=== PATIENT | male | born 1965 | race Caucasian/White ===

== ENCOUNTER 2017-01-16 16:29 | Emergency (ER) | payer SELFPAY ==
[~2017-01-16] VITALS: Ht 175.3 cm; Wt 120.0 kg
[~2017-01-16 16:29] MED LIST: CYCL1TAB29 PO; IBUP800T23 PO; MOBI15TA PO; NORC5TAB PO; ZOFR4TAB3 SL
[2017-01-16 16:31] VITALS: BP 123/80; PULSE 72; RESP 24; TEMP 97.3; O2SAT 93
[2017-01-16] MEDS ORDERED: SODIUM CHLOR 0.9% 1000 ML INJ 1,000 ML IV ONE (16:59)
[2017-01-16] MEDS ORDERED: SODIUM CHLORIDE 0.9% FLUSH 10 ML FLUSH IVF PRN (17:00)
--- NOTE | 2017-01-16 17:08 | PD ---
HPI Chief Complaint: Syncope/Near-Syncope Time Seen by Provider: 17:01 Travel History International Travel<30 days: No Contact w/Intl Traveler<30days: No Traveled to known affect area: No History of Present Illness HPI 51-year-old male presents to emergency Department with his , with reported syncopal or near syncopal episode yesterday afternoon. Patient's states that he was sitting after having a few drinks and grilling outdoors, which he notes he had a "funny look on his face" and was seemingly unresponsive to verbal stimuli. Patient one episode of projectile vomiting of clear fluids according to . Patient was then put in bed, and was reportedly having chills. Patient then slept from that time until approximately one hour prior to arrival here. Patient now feels tired but otherwise no complaints. He has no history of this in the past. Patient does have a history of chronic low back pain with a report of a "ruptured disc", and he did take some Lortab yesterday prior to this episode. Patient is allergic to eucalyptus. PFSH Past Medical History Diminished Hearing: Yes (HEARING TROUBLE) Pneumonia: Yes Past Surgical History Other Surgery: Yes (BACK SURGERY-15 YEARS AGO) Social History Alcohol Use: Yes Tobacco Use: Yes Substance Use: No Allergies-Medications (Allergen,Severity, Reaction): Coded Allergies: Eucalyptus Tree (Verified Allergy, Severe, Shortness of Breath, 08/06/16) Reported Meds & Prescriptions Reported Meds & Active Scripts Active Zofran Odt (Ondansetron Odt) 4 Mg Tab 4 Mg SL Q6HR PRN [place] (Hydrocodone-Acetaminophen) 5-325 mg Tab 1 Tab PO Q6H PRN Flexeril (Cyclobenzaprine HCl) 10 Mg Tab 10 Mg PO TID Mobic (Meloxicam) 15 Mg Tab 15 Mg PO DAILY Reported Ibuprofen 800 Mg Tab 800 Mg PO Q8HR PRN Review of Systems Except as stated in HPI: all other systems reviewed are Neg General / Constitutional: Positive: Chills, No: Fever Eyes: No: Visual changes HENT: No: Headaches Cardiovascular: No: Chest Pain or Discomfort Respiratory: No: Shortness of Breath Gastrointestinal: No: Abdominal Pain Genitourinary: No: Dysuria Musculoskeletal: No: Pain Skin: No Rash Neurologic: Positive: Syncope (see history present illness.), No: Weakness Psychiatric: No: Depression Endocrine: No: Polydipsia Hematologic/Lymphatic: No: Easy Bruising Physical Exam Narrative GENERAL: Patient appears in no acute distress. SKIN: Warm and dry. Normal color. Normal turgor. HEAD: Atraumatic. Normocephalic. EYES: Pupils equal and round. No scleral icterus. No injection or drainage. No nystagmus. ENT: No nasal bleeding or discharge. Mucous membranes pink and moist. Pharynx is clear. Airway is patent. NECK: Trachea midline. Supple nontender. CARDIOVASCULAR: Regular rate and rhythm. No murmurs gallops or rubs. RESPIRATORY: No accessory muscle use. Clear to auscultation. Breath sounds equal bilaterally. GASTROINTESTINAL: Abdomen soft, non-tender, nondistended. Hepatic and splenic margins not palpable. MUSCULOSKELETAL: Extremities without clubbing, cyanosis, or edema. No obvious deformities. Patient complains of low back pain on the left than the right with palpation. NEUROLOGICAL: Awake and alert. No obvious cranial nerve deficits. Motor grossly within normal limits. Five out of 5 muscle strength in the arms and legs. Normal speech. PSYCHIATRIC: Appropriate mood and affect; insight and judgment normal. Data Data Last Documented VS Vital Signs Date Time Temp Pulse Resp B/P Pulse Ox O2 Delivery O2 Flow Rate FiO2 01/16/17 17:25 82 129/74 85 118/81 81 125/88 Automatic Cuff 01/16/17 17:25 97 Room Air 01/16/17 16:31 97.3 24 Orders Electrocardiogram (01/16/17 16:59) Complete Blood Count With Diff (01/16/17 16:59) Comprehensive Metabolic Panel (01/16/17 16:59) Magnesium (Mg) (01/16/17 16:59) Ckmb (Isoenzyme) Profile (01/16/17 16:59) Troponin I (01/16/17 16:59) Act Partial Throm Time (Ptt) (01/16/17 16:59) Prothrombin Time / Inr (Pt) (01/16/17 16:59) Urinalysis - C+S If Indicated (01/16/17 16:59) Chest, Single Ap (01/16/17 16:59) Ct Brain W/O Iv Contrast(Rout) (01/16/17 16:59) Ecg Monitoring (01/16/17 16:59) Iv Access Insert/Monitor (01/16/17 16:59) Oximetry (01/16/17 16:59) Sodium Chloride 0.9% Flush (Ns Flush) (01/16/17 17:00) Sodium Chlor 0.9% 1000 Ml Inj (Ns 1000 M (01/16/17 16:59) Orthostatic Vital Signs (01/16/17 16:59) CKMB (01/16/17 17:10) CKMB% (01/16/17 17:10) Labs Laboratory Tests Test 01/16/17 01/16/17 17:10 18:30 White Blood Count 5.8 TH/MM3 Red Blood Count 4.84 MIL/MM3 Hemoglobin 15.3 GM/DL Hematocrit 45.7 % Mean Corpuscular Volume 94.4 FL Mean Corpuscular Hemoglobin 31.6 PG Mean Corpuscular Hemoglobin 33.5 % Concent Red Cell Distribution Width 13.9 % Platelet Count 187 TH/MM3 Mean Platelet Volume 9.4 FL Neutrophils (%) (Auto) 51.4 % Lymphocytes (%) (Auto) 28.9 % Monocytes (%) (Auto) 12.8 % Eosinophils (%) (Auto) 5.7 % Basophils (%) (Auto) 1.2 % Neutrophils # (Auto) 3.0 TH/MM3 Lymphocytes # (Auto) 1.7 TH/MM3 Monocytes # (Auto) 0.7 TH/MM3 Eosinophils # (Auto) 0.3 TH/MM3 Basophils # (Auto) 0.1 TH/MM3 CBC Comment DIFF FINAL Differential Comment Prothrombin Time 10.0 SEC Prothromb Time International 0.9 RATIO Ratio Activated Partial 28.2 SEC Thromboplast Time Sodium Level 142 MEQ/L Potassium Level 3.8 MEQ/L Chloride Level 105 MEQ/L Carbon Dioxide Level 28.5 MEQ/L Anion Gap 9 MEQ/L Blood Urea Nitrogen 11 MG/DL Creatinine 1.28 MG/DL Estimat Glomerular Filtration 59 ML/MIN Rate Random Glucose 182 MG/DL Calcium Level 8.3 MG/DL Magnesium Level 2.2 MG/DL Total Bilirubin 0.2 MG/DL Aspartate Amino Transf 34 U/L (AST/SGOT) Alanine Aminotransferase 60 U/L (ALT/SGPT) Alkaline Phosphatase 98 U/L Total Creatine Kinase 153 U/L Creatine Kinase MB 1.0 NG/ML Troponin I LESS THAN 0.02 NG/ML Total Protein 7.2 GM/DL Albumin 3.5 GM/DL Urine Color YELLOW Urine Turbidity CLEAR Urine pH 5.5 Urine Specific [place] 1.021 Urine Protein NEG mg/dL Urine Glucose (UA) NEG mg/dL Urine Ketones NEG mg/dL Urine Occult Blood NEG Urine Nitrite NEG Urine Bilirubin NEG Urine Urobilinogen LESS THAN 2.0 MG/DL Urine Leukocyte Esterase NEG Urine WBC 1 /hpf Microscopic Urinalysis Comment CULT NOT INDICATED MDM Medical Decision Making Medical Screen Exam Complete: Yes Emergency Medical Condition: Yes Differential Diagnosis Near syncope. Dehydration. Possible cardiac syndrome. Possible intracranial process. Electrolyte imbalance. Narrative Course Patient is medically stable at time of exam. Labs ordered including CBC, CMP, cardiac panel, urinalysis, PT PTT and INR, and EKG and chest x-ray. Orthostatics were ordered. CT of the head is ordered. IV access is obtained patient is given 1000 mL of normal saline bolus. EKG shows normal sinus rhythm with possible right ventricular conduction delay in V1 and V2. This is reviewed with Dr. Gomez. CBC shows no acute findings. CMP is remarkable for a random glucose of 182, and GFR 59. Calcium is 8.3. Troponin is less than 0.02. Coagulation studies are normal. Chest x-ray shows no acute findings per radiologist. CT scan is negative for acute process per radiologist. Patient is not orthostatic. Urinalysis is unremarkable. Patient was felt to have a near syncopal episode probably secondary to mild dehydration, EtOH, in addition to Lortab that he took for his back pain. All labs and CT scans and x-rays are within normal limits. Patient is to rest and push fluids and follow-up with his primary care physician as needed. Patient can always return to emergency department if worsening symptoms develop as needed. Diagnosis Primary Impression: Near syncope Referrals: [facility] call for appointment Primary Care Physician Patient Instructions: General Instructions, Near Syncope (ED) Additional Instructions: Patient was felt to have a near syncopal episode probably secondary to mild dehydration, EtOH, in addition to Lortab that he took for his back pain. All labs and CT scans and x-rays are within normal limits. Patient is to rest and push fluids and follow-up with his primary care physician as needed. Patient can always return to emergency department if worsening symptoms develop as needed. Med/Other Pt SpecificInfo: No Change to Meds Disposition: 01 DISCHARGE HOME Condition: Stable Oliver Mott January 16, 2017 17:08
[2017-01-16 17:16] LABS: BASOPHIL # 0.1 TH/MM3 (0-0.2); BASOPHIL % 1.2 % (0.0-2.0); EOSINOPHIL # 0.3 TH/MM3 (0-0.4); EOSINOPHIL % 5.7 % (0.0-4.0); HEMATOCRIT 45.7 % (39.0-51.0); HEMO FLAGS DIFF FINAL; LYMPH % 28.9 % (9.0-44.0); LYMPHOCYTE # 1.7 TH/MM3 (1.0-4.8); MEAN CELL VOLUME 94.4 FL (80.0-100.0); MEAN CORPUSCULAR HEMOGLOBIN 31.6 PG (27.0-34.0); MEAN CORPUSCULAR HGB CONC 33.5 % (32.0-36.0); MONO % 12.8 % (0.0-8.0); NEUT % 51.4 % (16.0-70.0); PLATELET COUNT 187 TH/MM3 (150-450); RED BLOOD COUNT 4.84 MIL/MM3 (4.50-5.90); RED CELL DISTRIBUTION WIDTH 13.9 % (11.6-17.2); WHITE BLOOD COUNT 5.8 TH/MM3 (4.0-11.0)
--- NOTE | 2017-01-16 17:21 | RADRPT ---
EXAM DATE/TIME: 01/16/2017 17:12 [facility] COMPARISON: No previous studies available for comparison. INDICATIONS : Syncope. MEDICAL HISTORY : None. SURGICAL HISTORY : None. ENCOUNTER: Initial ACUITY: 1 day PAIN SCORE: 0/10 LOCATION: Bilateral chest FINDINGS: A single view of the chest demonstrates the lungs to be symmetrically aerated without evidence of mas s, infiltrate or effusion. The cardiomediastinal contours are unremarkable. Osseous structures are intact. CONCLUSION: No acute disease. Zack Peterson MD on January 16, 2017 at 17:19 Board Certified Radiologist. This report was verified electronically.
[2017-01-16 17:25] VITALS: BP_SYST 118; BP_SYST 125; BP_SYST 129; BP_DIAS 74; BP_DIAS 81; BP_DIAS 88; O2SAT 97
[2017-01-16 17:29] LABS: APTT (PATIENT) 28.2 SEC (24.3-30.1); INTERNATIONAL NORMALIZED RATIO 0.9 RATIO
[2017-01-16 17:37] LABS: ANION GAP 9 MEQ/L (5-15); AST (GOT) 34 U/L (15-37); BICARBONATE 28.5 MEQ/L (21.0-32.0); BLOOD UREA NITROGEN 11 MG/DL (7-18); CHLORIDE 105 MEQ/L (98-107); GLOMERULAR FILTRATION RATE 59 ML/MIN (>89); MAGNESIUM 2.2 MG/DL (1.5-2.5); SODIUM (NA) 142 MEQ/L (136-145)
[2017-01-16 17:38] LABS: POTASSIUM 3.8 MEQ/L (3.5-5.1)
--- NOTE | 2017-01-16 17:38 | RADRPT ---
EXAM DATE/TIME: 01/16/2017 17:28 [facility] COMPARISON: No previous studies available for comparison. INDICATIONS : Syncopal episode. RADIATION DOSE: 35.64 CTDIvol (mGy) MEDICAL HISTORY : None SURGICAL HISTORY : None. ENCOUNTER: Initial ACUITY: 1 day PAIN SCALE: 0/10 LOCATION: cranial TECHNIQUE: Multiple contiguous axial images were obtained of the head. Using automated exposure control and adj ustment of the mA and/or kV according to patient size, radiation dose was kept as low as reasonably a chievable to obtain optimal diagnostic quality images. FINDINGS: CEREBRUM: The ventricles are normal for age. No evidence of midline shift, mass lesion, hemorrhage or acute in farction. No extra-axial fluid collections are seen. POSTERIOR FOSSA: The cerebellum and brainstem are intact. The 4th ventricle is midline. The cerebellopontine angle i s unremarkable. EXTRACRANIAL: The visualized portion of the orbits is intact. There is opacification of the right maxillary sinus. SKULL: The calvaria is intact. No evidence of skull fracture. CONCLUSION: No acute intracranial abnormality. Opacification of the right maxillary sinus. Zack Peterson MD on January 16, 2017 at 17:35 Board Certified Radiologist. This report was verified electronically.
[2017-01-16 17:54] LABS: ALKALINE PHOSPHATASE 98 U/L (45-117); ALT (GPT) 60 U/L (12-78); CREATINE KINASE 153 U/L (39-308); TOTAL BILIRUBIN ADULT 0.2 MG/DL (0.2-1.0)
--- NOTE | 2017-01-16 18:32 | PD ---
Data Data Last Documented VS Vital Signs Date Time Temp Pulse Resp B/P Pulse Ox O2 Delivery O2 Flow Rate FiO2 01/16/17 17:25 82 129/74 85 118/81 81 125/88 Automatic Cuff 01/16/17 17:25 97 Room Air 01/16/17 16:31 97.3 24 Orders Electrocardiogram (01/16/17 16:59) Complete Blood Count With Diff (01/16/17 16:59) Comprehensive Metabolic Panel (01/16/17 16:59) Magnesium (Mg) (01/16/17 16:59) Ckmb (Isoenzyme) Profile (01/16/17 16:59) Troponin I (01/16/17 16:59) Act Partial Throm Time (Ptt) (01/16/17 16:59) Prothrombin Time / Inr (Pt) (01/16/17 16:59) Urinalysis - C+S If Indicated (01/16/17 16:59) Chest, Single Ap (01/16/17 16:59) Ct Brain W/O Iv Contrast(Rout) (01/16/17 16:59) Ecg Monitoring (01/16/17 16:59) Iv Access Insert/Monitor (01/16/17 16:59) Oximetry (01/16/17 16:59) Sodium Chloride 0.9% Flush (Ns Flush) (01/16/17 17:00) Sodium Chlor 0.9% 1000 Ml Inj (Ns 1000 M (01/16/17 16:59) Orthostatic Vital Signs (01/16/17 16:59) CKMB (01/16/17 17:10) CKMB% (01/16/17 17:10) Labs Laboratory Tests Test 01/16/17 17:10 White Blood Count 5.8 TH/MM3 Red Blood Count 4.84 MIL/MM3 Hemoglobin 15.3 GM/DL Hematocrit 45.7 % Mean Corpuscular Volume 94.4 FL Mean Corpuscular Hemoglobin 31.6 PG Mean Corpuscular Hemoglobin 33.5 % Concent Red Cell Distribution Width 13.9 % Platelet Count 187 TH/MM3 Mean Platelet Volume 9.4 FL Neutrophils (%) (Auto) 51.4 % Lymphocytes (%) (Auto) 28.9 % Monocytes (%) (Auto) 12.8 % Eosinophils (%) (Auto) 5.7 % Basophils (%) (Auto) 1.2 % Neutrophils # (Auto) 3.0 TH/MM3 Lymphocytes # (Auto) 1.7 TH/MM3 Monocytes # (Auto) 0.7 TH/MM3 Eosinophils # (Auto) 0.3 TH/MM3 Basophils # (Auto) 0.1 TH/MM3 CBC Comment DIFF FINAL Differential Comment Prothrombin Time 10.0 SEC Prothromb Time International 0.9 RATIO Ratio Activated Partial 28.2 SEC Thromboplast Time Sodium Level 142 MEQ/L Potassium Level 3.8 MEQ/L Chloride Level 105 MEQ/L Carbon Dioxide Level 28.5 MEQ/L Anion Gap 9 MEQ/L Blood Urea Nitrogen 11 MG/DL Creatinine 1.28 MG/DL Estimat Glomerular Filtration 59 ML/MIN Rate Random Glucose 182 MG/DL Calcium Level 8.3 MG/DL Magnesium Level 2.2 MG/DL Total Bilirubin 0.2 MG/DL Aspartate Amino Transf 34 U/L (AST/SGOT) Alanine Aminotransferase 60 U/L (ALT/SGPT) Alkaline Phosphatase 98 U/L Total Creatine Kinase 153 U/L Creatine Kinase MB 1.0 NG/ML Troponin I LESS THAN 0.02 NG/ML Total Protein 7.2 GM/DL Albumin 3.5 GM/DL MDM Supervised Visit with HOA: Yes Narrative Course The history, exam, and medical decision-making in the associated mid-level provider note were completed with my assistance. I reviewed and agree with the findings presented. I attest that I had a [id number] encounter with the patient on the same day, and personally performed and documented my assessment and findings in the medical record. *My assessment and Findings: 51-year-old man, presents emergent arm for evaluation after unusual episode of syncope/unresponsiveness yesterday. He had a little bit of alcohol to drink, he says 2 beers, take a pain pill for his back, which he does once or twice a week, when yesterday evening he was seated his notices slumped over little bit. His eyes are open but he didn't appear to be responding, is talking was hanging out of his mouth. He didn't have an episode of vomiting. It took her a while to wake him up/get him to come through. He otherwise looked well. States at that point he was a little disoriented. She had to help him to bed. He then slept throughout the day until this afternoon. States he feels fine now but they're worried about the episode. He otherwise has been feeling generally well and healthy. No other recent illness or injury. No other complaints. Exam is benign. Initial labs are benign. We'll check CT, UA, likely discharge for outpatient follow-up. Etiology is unclear. Possibly related to medication use. Seizure she possible but less likely. Stroke or arrhythmia also seems unlikely. Diagnosis Primary Impression: Near syncope Referrals: Primary Care Physician Patient Instructions: General Instructions, Near Syncope (ED) Disposition: 01 DISCHARGE HOME Condition: Stable Clarence Gomez MD January 16, 2017 18:32
[2017-01-16 19:05] LABS: BLOOD, URINE NEG (NEG); COMMENT (UR) CULT NOT INDICATED; CULTURE IF INDICATED CULT NOT INDICATED; GLUCOSE,URINE NEG (NEG); KETONE, URINE NEG (NEG); NITRITE,URINE NEG (NEG); PH, URINE 5.5 (5.0-8.5); URINE COLOR YELLOW (YELLW/STRAW)
--- NOTE | 2017-01-17 08:21 | EKG ---
Date Performed: 01/16/2017 Time Performed: 17:18:47 PTAGE: 51 years EKG: Sinus rhythm POSSIBLE RIGHT VENTRICULAR CONDUCTION DELAY BORDERLINE ECG NO PREVIOUS TRACING DOCTOR: Spenser Walden Interpretating Date/Time 01/17/2017 08:20:39
== END 2017-01-16 19:20 | disposition home or self-care (01) ==
LOC: NEPC 16:29
DX: R55 Syncope and collapse (principal); R11.12 Projectile vomiting; G89.29 Other chronic pain; M54.5 Low back pain; R94.31 Abnormal electrocardiogram [ECG] [EKG]; Z72.0 Tobacco use
CPT/HCPCS: 70450; 71010; 80053; 81001; 82550; 82552; 83735; 84484; 85025; 85610; 85730; 93005; 96360; 96361; 99285; J7030

== ENCOUNTER 2017-11-23 11:05 | Emergency (ER) | payer SELFPAY ==
[~2017-11-23 11:05] MED LIST changes: +CYCL10TA PO; -CYCL1TAB29 PO; +IBUP1TAB7 PO; -IBUP800T23 PO
[2017-11-23 11:18] VITALS: BP 125/87; PULSE 96; RESP 16; TEMP 97.4; O2SAT 98
--- NOTE | 2017-11-23 13:57 | PD ---
HPI Chief Complaint: Back/ Neck Pain or Injury Time Seen by Provider: 13:57 Travel History International Travel<30 days: No Contact w/Intl Traveler<30days: No Traveled to known affect area: No History of Present Illness HPI 52-year-old male, with history of chronic low back pain 2 years, presents to emergency department with complaint of increasing low back pain for the past 2 weeks. History of "ruptured disks." Says chronic low back pain is from a work- related injury 2 years ago. Denies new or recent injury. Pain radiates down his left leg. Denies encopresis, incontinence, saddle anesthesias. Reports nausea without vomiting. Says he does sometimes vomit secondary to the intense pain. Denies IV drug use or cancer. Denies fevers. Denies change in urine or stool. Has had x-rays and MRIs in the past and saw a specialist in [facility] who told him he had nerve damage, but cannot see him again because he does not have insurance and workmen's comp declined that this was a work-related injury and is not paying for anything. He has been taking ibuprofen with mild relief of symptoms. Rates pain 10/10. Better when he lays on his belly and ankles his legs off the side of the bed. Worse with movement. No primary care provider. No known drug allergies. History of hypertension and does not take medications. Has no other medical complaints. No other modifying factors or associated signs and symptoms PFSH Past Medical History Diminished Hearing: Yes (HEARING TROUBLE) Pneumonia: Yes Past Surgical History Other Surgery: Yes (BACK SURGERY-15 YEARS AGO) Social History Alcohol Use: Yes Tobacco Use: Yes Substance Use: No Allergies-Medications (Allergen,Severity, Reaction): Coded Allergies: tree and shrub pollen (Unverified Allergy, Severe, Shortness of Breath, 11/23/17) Reported Meds & Prescriptions Reported Meds & Active Scripts Active Ibuprofen 800 Mg Tab 800 Mg PO Q6HR PRN Robaxin (Methocarbamol) 500 Mg Tab 500 Mg PO QID PRN Flexeril (Cyclobenzaprine HCl) 10 Mg Tab 10 Mg PO HS PRN Medrol Dosepak (Methylprednisolone) 4 Mg Dspk 4 Mg PO DIRECTED Per Pharmacist direction Zofran Odt (Ondansetron Odt) 4 Mg Tab 4 Mg SL Q6HR PRN [place] (Hydrocodone-Acetaminophen) 5-325 mg Tab 1 Tab PO Q6H PRN Flexeril (Cyclobenzaprine HCl) 10 Mg Tab 10 Mg PO TID Mobic (Meloxicam) 15 Mg Tab 15 Mg PO DAILY Reported Ibuprofen 800 Mg Tab 800 Mg PO Q8HR PRN Review of Systems Except as stated in HPI: all other systems reviewed are Neg Physical Exam Narrative GENERAL: Well-nourished, well-developed male patient, in no acute distress; afebrile, nontoxic-appearing SKIN: Warm and dry. HEAD: Atraumatic. Normocephalic. EYES: Pupils equal and round. No scleral icterus. No injection or drainage. ENT: Mucosa pink and moist. Airway patent. NECK: Trachea midline. CARDIOVASCULAR: Regular rate. RESPIRATORY: No accessory muscle use. GASTROINTESTINAL: Rounded MUSCULOSKELETAL: Bilateral lower extremities supple and non-tense with 2+ pedal pulses and sensory intact; with full range of motion and 5/5 strength. 2 + DTRs bilaterally. Active dorsiflexion and extension of bilateral feet; left foot dorsiflexion and extension is minimal and asymmetrical when compared to the right; left foot motor asymmetry and motor weakness when compared to the right. Left straight leg raise is positive for low back pain. Ambulatory in room with a limp to the left lower extremity. Sitting up in bed at 90. No obvious deformities. No clubbing. No cyanosis. No edema. BACK: No midline point tenderness on palpation of the lumbar spine. Tenderness on palpation of left lumbar paraspinal and iliosacral area. No obvious deformities. NEUROLOGICAL: Awake and alert. Oriented 3. No obvious cranial nerve deficits. Motor grossly within normal limits. Normal speech. Moves all extremities. 5/5 strength to all extremities. Sensory intact. PSYCHIATRIC: Appropriate mood and affect; insight and judgment normal. Data Data Last Documented VS Vital Signs Date Time Temp Pulse Resp B/P (MAP) Pulse Ox O2 Delivery O2 Flow Rate FiO2 11/23/17 11:18 97.4 96 16 125/87 (100) 98 Orders Orders Ketorolac Inj (Toradol Inj) (11/23/17 14:15) Orphenadrine Inj (Norflex Inj) (11/23/17 14:15) Mri L Spine W/O Contrast (11/23/17 ) Ed Discharge Order (11/23/17 17:59) MDM Medical Decision Making Medical Screen Exam Complete: Yes Emergency Medical Condition: Yes Medical Record Reviewed: Yes Differential Diagnosis Acute exacerbation of chronic low back pain, left-sided low back pain with sciatica, Narrative Course 52-year-old male with chronic low back pain 2 years with increased left-sided low back pain with sciatica 2 weeks. Denies new or recent injury. Denies encopresis, incontinence, saddle anesthesias. Denies IV drug use or cancer. Physical exam concludes left dorsiflexion and extension with motor asymmetry and motor weakness when compared to the right foot. The patient is unable to verify if this is a new or old finding. He is unaware of this finding. 1430: I spoke with Dr. Plummer and discussed my exam findings. He agrees with my plan of care and need for MRI secondary to asymmetry of motor asymmetry and motor weakness on physical exam. MRI lumbar spine ordered. 1755: MRI of lumbar spine conclude: Lumbar Spine MRI 11/23/17 0000 Signed Impressions: Service Date/Time: November 17:03 - CONCLUSION: 1. Central protrusion at the L5-S1 disc is contained within the epidural fat and extends into the neural foramen on the left side. 2. 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 Denver Pena MD Patient provided a copy of the MRI report. MRI findings discussed with Dr. Padgett and he recommends follow-up with neurosurgery. Instructed patient to follow-up with neurosurgeon. Ibuprofen, Flexeril at bedtime, Robaxin, and Medrol Dosepak prescribed for home. Instructed patient to follow up with primary care provider. Patient verbalizes understanding and agreement with treatment plan. Patient is medically cleared and stable for discharge. Discussed reasons to return to the emergency department. Patient agrees with treatment plan. The patients vital signs are stable and the patient is stable for outpatient follow-up and treatment. Patient discharged home, stable and in no acute distress. Diagnosis Primary Impression: Acute exacerbation of chronic low back pain Additional Impression: Left-sided low back pain with sciatica Qualified Codes: M54.42 - Lumbago with sciatica, left side Referrals: [facility] Neurosurgeon Primary Care Physician Patient Instructions: Acute Low Back Pain (ED), General Instructions, Sciatica (ED) Additional Instructions: Tylenol or ibuprofen as directed and as needed for pain Robaxin as prescribed and as needed for muscle spasms Heating pad and/or ice to affected area to reduce pain Avoid aggravating activities; increase activity as tolerated Follow-up with primary care provider Follow-up with neurosurgeon Return to emergency department immediately with worsening of symptoms Med/Other Pt SpecificInfo: Prescription(s) given Scripts Ibuprofen (Ibuprofen) 800 Mg Tab 800 MG PO Q6HR Y for PAIN, #30 TAB 0 Refills Prov: Carlene Alcantar 11/23/17 Methocarbamol (Robaxin) 500 Mg Tab 500 MG PO QID Y for MUSCLE SPASM, #30 TAB 0 Refills Prov: Carlene Alcantar 11/23/17 Cyclobenzaprine (Flexeril) 10 Mg Tab 10 MG PO HS Y for MUSCLE SPASM, #10 TAB 0 Refills Prov: Carlene Alcantar 11/23/17 Methylprednisolone Dosepak (Medrol Dosepak) 4 Mg Dspk 4 MG PO DIRECTED, #1 DSPK 0 Refills Per Pharmacist direction Prov: Carlene Alcantar 11/23/17 Disposition: 01 DISCHARGE HOME Condition: Stable Carlene Alcantar Nov 23, 2017 13:57
[2017-11-23] MEDS ORDERED: ORPHENADRINE INJ 60 MG/2 ML AMP IM ONE (14:15)
[2017-11-23] MEDS ORDERED: KETOROLAC TROMETHAMINE 60 MG/2 ML (IM) VIAL IM ONE (14:15)
--- NOTE | 2017-11-23 17:35 | RADRPT ---
EXAM DATE/TIME: 11/23/2017 17:03 [place] COMPARISON: No previous studies available for comparison. INDICATIONS : Low back pain with left foot drop. MEDICAL HISTORY : None. SURGICAL HISTORY : None. ENCOUNTER: Initial ACUITY: 3 day PAIN SCORE: 4/10 LOCATION: low back. TECHNIQUE: Multiplanar multisequence MRI of the lumbar spine was performed without contrast. FINDINGS: The most caudal appearing lumbar vertebra is numbered as L5. Vertebral bodies of the lumbar spine are in normal alignment and there is preservation of vertebral b sussy height. No signal abnormalities within the marrow. There is mild desiccation of the L5-S1 disc. 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 The conus is at the level of T12. T12-L1: The thecal sac has a normal diameter. No evidence of disc bulge or protrusion. The neural foramina are patent bilaterally. L1-L2: The thecal sac has a normal diameter. No evidence of disc bulge or protrusion. The neural foramina are patent bilaterally. L2-L3: The thecal sac has a normal diameter. No evidence of disc bulge or protrusion. The neural foramina are patent bilaterally. L3-L4: The thecal sac has a normal diameter. No evidence of disc bulge or protrusion. The neural foramina are patent bilaterally. L4-L5: There is mild broad-based bulging of the disc without deformity of the thecal sac. There is some ext ension into the neural foramen on both sides without evidence of impingement. L5-S1: There is central protrusion of the disc which is contained within the epidural fat and there is no de formity of the thecal sac and stop there is a mild lateral extension into the neural foramen on the l eft side without evidence of neural impingement. CONCLUSION: 1. Central protrusion at the L5-S1 disc is contained within the epidural fat and extends into the anastasiya ral foramen on the left side. 2. 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 Denver Pena MD on November 23, 2017 at 17:29 Board Certified Radiologist. This report was verified electronically.
[2017-11-23] MEDS ORDERED: MEDR4PAK PO (17:58)
[2017-11-23] MEDS ORDERED: ROBA500T PO (17:58)
[2017-11-23] MEDS ORDERED: IBUP1TAB7 PO (17:58)
[2017-11-23] MEDS ORDERED: CYCL10TA PO (17:58)
== END 2017-11-23 18:08 | disposition home or self-care (01) ==
LOC: NEPK 11:05
DX: M54.42 Lumbago with sciatica, left side (principal); G89.29 Other chronic pain; M51.27 Other intervertebral disc displacement, lumbosacral region; I10 Essential (primary) hypertension; Z72.0 Tobacco use
CPT/HCPCS: 72148; 96372; 99284; J1885; J2360